=== PATIENT | male | born 1960 | race Caucasian/White ===

== ENCOUNTER → 2020-11-02 | Outpatient (CLI) | payer OTHER | END | disposition home or self-care (01) | LOC: RADMRIMAIN 08:55 | PROVIDERS: ATTEND Urology | DX: Z53.9 Procedure and treatment not carried out, unspecified reason (principal) ==

== ENCOUNTER → 2024-04-04 | Outpatient (CLI) | payer OTHER ==
[2024-04-04 18:05] LABS: African American GFR (CKD) 59 (>60 ml/min/1.73 sqM); Blood Urea Nitrogen 41 mg/dL (9-20); Non-African American GFR(CKD) 51 (>60 ml/min/1.73 sqM)
--- NOTE | 2024-04-08 09:23 | CT ---
EXAMINATION TYPE: CT soft tissue neck w con DATE OF EXAM: 04/04/2024 COMPARISON: None HISTORY: Left side neck mass. CT DLP: 735 mGycm CONTRAST: Patient injected with 80ml mL of Isovue 300. TECHNIQUE: Axial images at 3 mm thick sections. Reconstructed images in the coronal plane and sagitt al plane are reviewed. FINDINGS: Limited CT sections are obtained the lung apices. The lung apices appear clear. CT neck: The torus tubarius and fossa of Rosenmuller are normal. Boat Mechanic spaces are normal. Para nasal sinuses and mastoid air cells are clear. Extending from the inferior aspect of the left parotid gland is a hypodense area measuring 3.8 x 4.2 cm and 27 Hounsfield units. Differential could include abscess, brachial cleft cyst, metastatic lymph node. Additional workup is recommended. Right parotid gland appears normal. Submandibular glands, are normal. Parapharyngeal spaces are norm al. There are small submental lymph nodes present. 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 A discrete mass however is not identified. There is somewhat medial course of the right internal carotid artery. Vocal cords are opposed at the time of examination and patent airway is not identified at the time of imaging of the larynx. Subglottic airway appears unremarkable. Thyroid as visualized appears normal Vertebral body spurring is present. Prevertebral space appears normal. Epiglottis as visualized appea rs normal. IMPRESSION: 1. 3.8 x 4.2 cm left infra parotid mass. Correlate for abscess or metastatic lymph node. Consider bra nchial cleft cyst. [facility], , 04/08/2024 9:21 AM
== END | disposition home or self-care (01) ==
LOC: RADCTMAIN 17:15
PROVIDERS: ATTEND Otolaryngology
DX: K11.8 Other diseases of salivary glands (principal); R22.1 Localized swelling, mass and lump, neck
CPT/HCPCS: 82565; 84520; 70491; 36415; Q9967